=== PATIENT | female | born 1930 | race Caucasian/White ===

== ENCOUNTER 2017-03-07 08:55 | Day surgery (SDC) | payer MEDICARE, OTHER ==
[~2017-03-07] VITALS: Ht 165.1 cm; Wt 60.0 kg
[~2017-03-07 08:55] MED LIST: ALBU90AE IH; AMLO5TAB2 PO; ARFO15VI2 IH; ASPI-973 PO; ATEN100T PO; ATOR80TA PO; BUDE0.255 INHALATION; BUTA1CAP39 PO; CALC600T12 PO; CETI10CA PO; CHOL500050 PO; CRAN500T PO; CYAN250010 PO; FA/V1CAP3 PO; FERR325T6 PO; FUR20 PO; IRBE300T18 PO; Lactated Ringer's 1,000 ML IV ONE; Lactated Ringer's 1,000 ML IV SCH; MetoCLOpramide 5 mg/mL 2 mL Inj IVPUSH PRN; OMEG500C PO; Ondansetron 2 mg/mL 2 mL Inj IVPUSH PRN; RANI150C4 PO; TRAM50TA2 PO; TRAZ-118 PO; UBID100C16 PO; [UNRECOGNIZED DRUG - CODE] PO; [UNRECOGNIZED DRUG - CODE] PO
[2017-03-07] MEDS ORDERED: Propofol 10,000 mCg/mL 20 mL Inj ONE (08:56)
[2017-03-07] MEDS ORDERED: OMEP40CA36 PO (09:43)
[2017-03-07] MEDS ORDERED: CLON0.1T PO (09:45)
[2017-03-07 09:47] VITALS: BP 144/68; PULSE 70; RESP 16; O2SAT 98
--- NOTE | 2017-03-07 10:16 | PCM.HPANE ---
Patient Data Surgeon Admitting Provider: Attending Provider:Herminio Esposito MD Primary Care Physician:Benja Espinoza MD Other Provider:[facility] Reason for Visit Anemia, Gerd Ht/WT & BMI Height (Feet): 5 Height (Inches): 5 Weight (Kilograms): 60 Body Mass Index 22.00 Allergies Coded Allergies: No Known Allergies (Unverified , 03/07/17) Past Anesthesia History Anesthesia History: Denies:: Anesthesia Reactions, Fam Anesthesia Reaction, Fam Malignant Hypertherm, Malignant Hyperthermia Diabetes History Hx Diabetes?: No MRSA MRSA: No Medications Home Meds Incl Beta Cathryn: Yes Reported Medications Clonidine 0.1 Mg Tablet0.1 Mg PO HS Ref 0 03/07/17 Omeprazole 40 Mg Capsule.dr40 Mg PO DAILY Ref 0 03/07/17 Cetirizine HCl (Zyrtec)10 Mg Uxndipg54 Mg PO HS #30 CAPSULE Ref 0 03/06/17 Cholecalciferol (Vitamin D3) (Vitamin D3)50,000 Unit Tjthmeh20,000 Unit PO 03/06/17 Cyanocobalamin (Vitamin B-12) (Vitamin B12)2,500 Mcg Tablet2,500 Mcg PO 03/06/17 Trazodone 100 Mg Mntcde716 Mg PO HS Ref 0 03/06/17 Tramadol 50 Mg Sexsga18 Mg PO QID PRN For Pain Ref 0 03/06/17 Albuterol Sulfate (Proair Respiclick)90 Mcg Aer.pow.ba90 Mcg IH QID 03/06/17 FA/Vit C/E/Zinc/Copper/Lut/Alvaro (Ocuvel Capsule)0.5-250 Mg Capsule1 Each PO DAILY 03/06/17 Irbesartan 300 Mg Lhjqve467 Mg PO DAILY 03/06/17 Westfir-3 Fatty Acids (Fish Oil)500 Mg Capsule.dr500 Mg PO DAILY 03/06/17 Butalbital/Acetamin/Caff 50-300-40 mg (Fioricet 50-300-40 mg)1 Each Capsule1 Capsule PO Q4H PRN For Pain Ref 0 03/06/17 Ferrous Sulfate 325 Mg Tablet.dr325 Mg PO DAILY 30 Days Ref 0 03/06/17 Ubidecarenone (Coq-10)100 Mg Vluofxi853 Mg PO DAILY 03/06/17 Calcium Carbonate (Calcium)600 Mg Xgtzes553 Mg PO DAILY 03/06/17 Budesonide Neb Soln 0.25 Mg/2 Ml Neb0.25 Mg INHALATION BID Ref 0 03/06/17 Arformoterol Tartrate (Brovana)15 Mcg/2 Ml Vial.neb15 Mcg IH BID 03/06/17 Atorvastatin (Lipitor)80 Mg Whoszm62 Mg PO DAILY Ref 0 03/06/17 Atenolol 100 Mg Ffzbrr921 Mg PO DAILY Ref 0 03/06/17 Aspirin 81 Mg Tucdfn59 Mg PO DAILY Ref 0 03/06/17 Amlodipine 5 Mg Tablet5 Mg PO DAILY Ref 0 03/06/17 Discontinued Reported Medications Ranitidine 150 Mg Mzebwto074 Mg PO BID Ref 0 03/06/17 Furosemide 20 Mg Tab20 Mg PO DAILY 30 Days Ref 0 03/06/17 Cranberry Fruit (Cranberry)500 Mg Tab.kajg743 Mg PO DAILY 03/06/17 Clonidine HCl/Chlorthalidone (Clorpres 0.2-15 Tablet)1 Each Tablet1 Each PO DAILY 03/06/17 Clonidine HCl/Chlorthalidone (Clorpres 0.1-15 Tablet)1 Each Tablet1 Each PO BID 03/06/17 Last Time Dose Received Only med today was atenolol History History of ENT Problems?: No HEENT History: Positive for:: Dysphagia Denture Type: None Teeth Condition: Within Normal Limits Hx of Heart Problems?: Yes Cardiovascular History: Positive for:: Hypertension Denies:: AICD Pacemaker Valvular Heart Disease Other History/Comments Hx PR 20 years ago; [address]; pt states her heart function is appropriate No recent CP Hx of Respiratory Problem?: Yes Respiratory History: Positive for:: COPD (Breathing at baseline) Hx Neurologic Problems?: No Neurological History: Denies:: CVA Hx of GI Problems?: Yes Gastrointestinal History: Positive for:: Gastrointestinal Bleeding Hx of Problems?: No Genitourinary History: Denies:: HX of Hemodialysis Kidney Stones Urinary Tract Infection HX of Peritoneal Dialysis: No Hx Musculoskeletal Problems?: No Musculoskeletal History: Positive for:: Joint Replacement (bilateral knees) Hx of Psycho/Social Problems?: No Psycho Social History: Denies:: Anxiety Bipolar Disorder Hx Depression Suicide Attempt Hx Surgeries?: Yes (vj, appy, bilateral knee replacements, ) Hx Any Other Health Problems?: No Hx Diabetes: No Hx Alcohol Use: No Stop/Bang Treated for Sleep Apnea?: No Do You Have a CPAP Machine?: No S-Snoring: Do You Snore Loudly: No T-Tired: feel tired, fatigued: No O-Obsered: Observed not breath: No P-Blood Pressure: treated: Yes B- Body Mass Index > 35 kg/m2: No A- Age over 50: Yes N- Neck Large Circumference: No G- Gender Male: No VALERIE Total Score: 2 Risk Assessment Category Category 1A: Patient has history of documented sleep apnea, and HAS NOT received any narcotic, sedative or anesthesia administration during this stay. Category 1B: Patient has history of documented sleep apnea, and HAS received any narcotic , sedative or anesthesia administration during this stay Category 2: Patient has SUSPECTED Obstructive Sleep Apnea, and HAS received any narcotic , sedative or anesthesia administration during this stay. Category 3: Patient has SUSPECTED Obstructive Sleep Apnea and HAS NOT received narcotic, sedative or anesthesia administration during this stay. Category 4: Outpatient in Procedural Areas with known sleep apnea or who screen positive for High Risk via the STOP/BANG questionnaire. Exam Exam Vital Signs Vital Signs Date Time Temp Pulse Resp B/P Pulse Ox O2 Delivery O2 Flow Rate FiO2 03/07/17 09:47 70 16 144/68 98 Room Air General Appearance: Alert, Oriented X3 HEENT/AIRWAY: MP 2, Neck Movement (FROM) Lungs: Clear to Auscultation, Clear to Percussion Heart: Exam Unremarkable, Regular Rate/Rhythm Meds/Labs/Diagnostics Admission Meds Current Medications Lactated Ringer's (Lr) 1,000 ml @ 10 mls/hr Q24H ONCE IV Last administered on 03/07/17t 10:05; Start 03/07/17 at 06:00; Stop 03/08/17 at 05:59 Plan Impression Patient chart reviewed, patient interviewed and anesthestic plan with risks, benefits, and alternatives discussed, and informed consent obtained. ASA Physical Status: ASA2 Mod Systemic Disease Anesthetic Plan: MAC Bene/Risks/Altern/Consents: Yes HP Complete Prior to Induction: Yes Yakov Coronel MD Mar 07, 2017 10:15
--- NOTE | 2017-03-07 10:41 | PCM.ENDEGD ---
EGD Date of Service: Mar 07, 2017 Physician Herminio Esposito MD Pre Procedure Diagnosis: Anemia Post Procedure Dx & Findings: Gastritis and possibly a large hiatal hernia. Procedure Esophagogastroduodenoscopy PROCEDURE IN DETAIL: After proper sedation, Olympus video endoscope was inserted into patient's mouth and esophagus was successfully intubated. Scope introduced esophagus. Esophagus showed normal shiny whitish mucosa consistent with squamous cell component. Z line was intact at 40 cm from the incisors. Scope further advanced into the stomach. In the stomach from the antrum to the body and to some extent into the fundus, there was evidence of mild irritation and edema with atrophy. Biopsies obtained for gastritis. In the middle of the stomach, it appears that something is pinching it. The stomach was not insufflating sufficiently. While insufflating, the fundus seems to insufflate very well and the entrance into insufflate very well. Biopsies are obtained in this area as well and placed in the same bottle as the gastritis. Cardia fundus body antrum pylorus were all visualized. Retroflexion was done. Stomach was easily inflated and deflatable using air. Scope further events to the distal duodenum. Duodenum revealed normal villous structures with normal appearing folds without any mass ulcer erosion. Biopsy 5 obtained for celiac disease. Impression Gastritis Pinching in the mid stomach. No clear etiology for the anemia Recommendation Await biopsy Consider obtaining a upper GI series and if this does not explain the pinching of the mid stomach, obtain a CT scan of the abdomen and pelvis. Presedation Assessment Risks and Benefits Informed consent was obtained from the patient after all risks and benefits including but not limited to drug reaction, infection, pain, bleeding, perforation, as well as alternatives were discussed. Patient monitoring Continuous pulse oximetry, cardiac monitoring, blood pressure monitoring, IV access, and oxygen at 2L per nasal cannula. Complications There were no periprocedural complications identified. Post Procedure Plan Post Procedure Recommendations 1. Restrict activities today. 2. Resume normal activities in the morning. 3. Resume medications. 4. GERD behavioral modification: - Avoid fatty, acidic, spicy, large meals - Do not lie down after meals - Do not eat or drink anything for at least 2 1/2 hours before going to bed at night - Discontinue tobacco and alcohol - Decrease or avoid caffeine - Avoid chocolate and mints - Decrease weight - Avoid aspirin and non steroidal anti-inflammatory agents (NSAID) such as Aleve, Advil, Mobic, Naproxen, Ibuprofen, etc 5. Add proton pump inhibitor. Take 30 minutes before 1st meal of the day. 6. Patient informed of normal post procedure side effects as bloating, drowsiness, blood streaking in the stool 7. If gastric biopsy reveal H.pylori, continue with appropriate treatment 8. If small bowel biopsy reveals celiac, continue with appropriate treatment 9. Please don't hesitate to call me with any questions Herminio Esposito MD Mar 07, 2017 10:41
[2017-03-07 11:09] VITALS: BP 107/55; PULSE 75; RESP 16; O2SAT 94
--- NOTE | 2017-03-07 11:11 | PCM.ANEP1 ---
Post Anesthesia Phase 1 PACU Phase 1 Assessment Date of Service: Mar 07, 2017 Vital Signs Vital Signs Date Time Temp Pulse Resp B/P Pulse Ox O2 Delivery O2 Flow Rate FiO2 03/07/17 09:47 70 16 144/68 98 Room Air Anesthetic Administered: MAC Level of Alertness: Awake, talking WILKINSON's with Equal Strength: Yes Pain: No Nausea or Vomiting: No Lungs: Clear to Auscultation, Clear to Percussion Comments See anesth record for PACU VS. PACU VSS Yakov Coronel MD Mar 07, 2017 11:10
--- NOTE | 2017-03-07 11:12 | PCM.ENDCOL ---
Colonoscopy Date of Service: Mar 07, 2017 Physician Herminio Esposito MD Pre Procedure Diagnosis: Anemia Post Procedure Dx & Findings: Polyp hemorrhoids diverticuli Procedure Colonoscopy PROCEDURE IN DETAIL: Prep adequate Withdrawal time 14 minutes After unremarkable rectal examination the Olympus video colonoscope was inserted patient's anal canal and was advanced to cecum. Landmarks were identified including the ileocecal valve and appendiceal orifice. Scope was further advanced to terminal ileum. We were able to advance about 10 cm. Normal villous structures were noted without ulcer or mass erosion. Scope was withdrawn systematically. Visualized colonic mucosa showed healthy shiny mucosa with normal healthy-appearing vasculature. In the cecum, there were 2 polyps which are 1 mm in size. These were resected completely using cold forceps. In the ascending colon there was a 1 mm polyp which was resected completely using cold forceps. In the transverse colon there was another 1 mm polyp which was resected completely using cold forceps. In the sigmoid colon and to the right colon there were several small to medium sized diverticuli. Mostly these were clustered in the sigmoid colon. In the rectum retroflexion was done which showed hemorrhoids. Anal canal was inspected carefully on the way out and hemorrhoids noted. Impression Polyps 4 status post complete removal Diverticuli Hemorrhoids No source of anemia Normal TI Recommendation Repeat colonoscopy 3 years Diverticular diet Consider CT enterography for anemia workup if negative capsule endoscopy. Presedation Assessment Risks and Benefits Informed consent was obtained from the patient after all risks and benefits including but not limited to drug reaction, infection, pain, bleeding, perforation, as well as alternatives were discussed. Patient monitoring Continuous pulse oximetry, cardiac monitoring, blood pressure monitoring, IV access, and oxygen at 2L per nasal cannula. Complications There were no periprocedural complications identified. Post Procedure Plan Post Procedure Recommendations 1. Restrict activities today. 2. Resume normal activities in the morning. 3. Resume medications. 4. Patient informed of normal post procedure side effects as bloating, drowsiness, blood streaking in the stool. 5. average risk CRCS. If colon polyps come back as: -Hyperplastic- can repeat colonoscopy in 10 years -Tubular adenoma- repeat colonoscopy in 5 years -Tubulovillous/villous adenoma- repeat colonoscopy in 3 years -If any dysplasia- return to clinic as soon as possible 6. Please don't hesitate to call me with any questions. Herminio Esposito MD Mar 07, 2017 11:12
[2017-03-07 11:19] VITALS: BP 116/60; PULSE 73; RESP 16; O2SAT 94
[2017-03-07 11:28] VITALS: BP 169/70; PULSE 72; RESP 16; O2SAT 95
--- NOTE | 2017-03-08 17:35 | PATH ---
SURGICAL PATHOLOGY Attending Physician:Herminio Esposito M.D. CASE STATUS: Signed Out PATIENT NAME: SAMIA SIMON PID: [id number] : 1930 DATE COLLECTED:03/07/2017 17:17 SPECIMEN: 1: Duodenum, Biopsy 2: Gastric, Biopsy 3: Colon, Biopsy 4: Colon, Biopsy 5: Colon, Biopsy CLINICAL HISTORY: 1). DUODENAL BIOPSY 2). GASTRIC BIOPSY 3). CECAL POLYP X2 4). ASCENDING POLYP X1 5). TRANSVERSE POLYP X1 FINAL DIAGNOSIS: 1. Duodenal Biopsy: Duodenal mucosa with no diagnostic abnormality. Negative for active inflammation, features of sprue, dysplasia or malignancy. 2. Gastric Biopsy: Portions of body-type mucosa with chronic gastritis. No definite H. pylori organisms identified by H&E stain. Immunohistochemistry studies pending; results will be reported as an addendum. Negative for intestinal metaplasia, dysplasia, and malignancy. 3. Cecal Polyp, Biopsy: Portions of tubular adenoma x2; negative for high-grade dysplasia. 4. Ascending Colon, Polyp, Biopsy: Tubular adenoma; negative for high-grade dysplasia. 5. Transverse Colon, Polyp, Biopsy: Tubular adenoma; negative for high-grade dysplasia. ICD10: K63.5 GROSS DESCRIPTION: The specimen is received in five formalin filled containers labeled with the patient's name. 1). The specimen is sublabeled "duodenal" and consists of 5 portions of tissue which aggregate to 0.3 x 0.3 x 0.2 CM. The specimen is entirely submitted in cassette 1A. 2). The specimen is sublabeled "gastric" and consists of 2 portions of tissue which aggregate to 0.3 x 0.3 x 0.2 CM. The specimen is entirely submitted in cassette 2A. 3). The specimen is sublabeled "cecal polyp" and consists of 2 extremely tiny portions of tissue which aggregate to 0.2 x 0.2 x 0.2 CM. The specimen is entirely submitted in cassettes 3A. 4). The specimen is sublabeled "ascending polyp" and consists of a 0.3 x 0.3 x 0.2 CM portion of tissue which is entirely submitted in cassette 4A. 5). The specimen is sublabeled "transverse polyp" and consists of a 0.2 x 0.2 x 0.1 CM portion of tissue which is entirely submitted in cassette 5A. 03/07/2017 [facility] ICD-9 CODES: CPT CODES: 1: 13592 2: 66607, 21197 3: 67455 4: 76378 5: 08885 PROCEDURE/ADDENDA: Immunohistochemistry SPI Interpretation {Not Entered} Results-Comments Part 2: This addendum is issued to report the results of immunohistochemistry. The final diagnosis is unchanged. An immunohistochemical stain for Helicobacter was performed to evaluate for Helicobacter organisms and is negative. A control stain showed appropriate reactivity. This test was developed and its performance characteristics determined by [facility]. It has not been cleared or approved by the [place]. Food and Drug Administration. The FDA has determined that such clearance or approval is not necessary. This test is used for clinical purposes. It should not be regarded as investigational or for research. Electronically Signed Out Alessandra Pickett MD Electronically Signed Out Martine Newsome MD [facility], [place] [address] Technical component performed at [facility], [address], [place], [address]
== END 2017-03-07 23:59 | disposition home or self-care (01) ==
LOC: END 08:55
PROVIDERS: ATTEND Internal Medicine
DX: D12.0 Benign neoplasm of cecum (principal); D12.2 Benign neoplasm of ascending colon; D12.3 Benign neoplasm of transverse colon; K57.30 Diverticulosis of large intestine without perforation or abscess without bleeding; K64.8 Other hemorrhoids; K29.50 Unspecified chronic gastritis without bleeding; D64.9 Anemia, unspecified; K21.9 Gastro-esophageal reflux disease without esophagitis; J44.9 Chronic obstructive pulmonary disease, unspecified; G47.30 Sleep apnea, unspecified; I10 Essential (primary) hypertension; I25.10 Atherosclerotic heart disease of native coronary artery without angina pectoris; I25.2 Old myocardial infarction; G43.909 Migraine, unspecified, not intractable, without status migrainosus; Z95.5 Presence of coronary angioplasty implant and graft; Z96.653 Presence of artificial knee joint, bilateral; Z79.82 Long term (current) use of aspirin; Z79.51 Long term (current) use of inhaled steroids
CPT/HCPCS: 43239; 45380; 88305; J7120